=== PATIENT | male | born 1995 | race Caucasian/White ===

== ENCOUNTER 2021-08-27 08:49 | Emergency (ER) | payer MEDICAID, SELFPAY ==
--- NOTE | ~2021-08-27 | CT_ITS ---
EXAMINATION: CT facial bones w con EXAM DATE: 08/27/2021 10:07 INDICATION: dental abscess, facial swelling, r/o deeper inf. TECHNIQUE: Spiral CT of the facial bones was acquired in the axial plane following intravenous inject ion of 75 mL Omnipaque 350. Coronal reformatted images were also reviewed. The dose-length product (DLP) for this examination was 436.63 mGy-cm. The exposure was tailored according to patient size, a nd iterative reconstruction (ASIR) was used as additional dose reduction technique. There is no prio r study for comparison. FINDINGS: There are multiple dental cavities. There is apical lucency surrounding the root of tooth # 4, right upper premolar. Anterior to this, along the right maxilla there is a pocket of fluid measuri ng about 2.3 cm in diameter by 5 mm in maximal thickness, a small odontogenic abscess. There is rathe r extensive right facial swelling. There is mild to moderate right maxillary sinus mucoperiosteal thi ckening. Mildly enlarged lymph node at the right mandibular angle, reactive. There are no displaced a cute nasal bone fractures. The mandible, sinuses and orbits are intact. The orbits, globes and extr aocular muscles are unremarkable. The visualized sinuses and mastoid air cells are well aerated. IMPRESSION: Multiple dental caries, including right upper premolar apical lucency and small abscess a nterior to this, anterior to the right maxillary bone. Reviewed, dictated and finalized at location A. IMPRESSION: Multiple dental caries, including right upper premolar apical lucen cy and small abscess anterior to this, anterior to the right maxillary bone.
--- NOTE | 2021-08-27 08:54 | ED.DENTAL ---
HPI - Dental/Oral General Chief complaint: Dental/Oral <ALIRIO Moody Last Filed: 08/27/21 13:46> Stated complaint: facial swelling, dental abscess <ALIRIO Moody Last Filed: 08/27/21 13:46> Time Seen by Provider: 08/27/21 08:52 <Karlie Hernandez PA-C - Last Filed: 08/27/21 13:46> Source: patient <ALIRIO Moody Last Filed: 08/27/21 13:46> Mode of arrival: ambulatory <ALIRIO Moody Last Filed: 08/27/21 13:46> Limitations: no limitations <ALIRIO Moody Last Filed: 08/27/21 13:46> History of Present Illness HPI Narrative: Patient is a 26 y/o male who presents to the ED with report of dental pain and swelling. Patient reports he has had several issues with his teeth in the past. He developed pain in his right upper molar 3 to 4 days ago. He has since developed swelling in his right upper gums. The swelling has seemed to spread into his right facial cheek and up towards his right eye over the last day, prompting his presentation to the ED today. Patient was prescribed Amoxicillin 500mg and Diclofenac from his Suboxone clinic. He has taken 2 doses of the Amoxicillin so far. He does not have a dentist appointment at this time, but is aware he will need several of his teeth pulled. Patient denies any fevers, chills, nausea, vomiting, vision changes, dysphagia. <Karlie Hernandez PA-C - Last Filed: 08/27/21 13:46> Related Data Allergies/adverse reactions: Allergies Allergy/AdvReac Type Severity Reaction Status Date / Time No Known Allergies Allergy Verified 08/27/21 09:00 <ALIRIO Moody Last Filed: 08/27/21 13:46> Review of Systems Review of Systems: CONSTITUTIONAL: Denies fever, chills. EYES: Denies visual changes. ENT: Reports R upper molar dental pain, swelling along R upper gumline. Denies dysphagia, rhinorrhea, congestion, sore throat. RESPIRATORY: Denies dyspnea. GASTROINTESTINAL: Denies nausea, vomiting. SKIN: Reports swelling in R facial cheek into R eye. Denies rash or itching. MUSCULOSKELETAL: Denies back pain, joint pain, or myalgia. NEUROLOGIC: Denies headache, numbness, or weakness. <Karlie Hernandez PA-C - Last Filed: 08/27/21 13:46> All systems reviewed & are unremarkable except as noted in HPI and below <Karlie Hernandez PA-C - Last Filed: 08/27/21 13:46> PMFSH Past Medical History Medical History: Medical History (Updated 08/27/21 @ 10:31 by Karlie Hernandez PA-C) No pertinent past medical history <Karlie Hernandez PA-C - Last Filed: 08/27/21 13:46> Surgical History Surgical History: Surgical History (Updated 08/27/21 @ 09:17 by Karlie Hernandez PA-C) S/P ORIF (open reduction internal fixation) fracture <Karlie Hernandez PA-C - Last Filed: 08/27/21 13:46> Social History Social History: Social History (Updated 08/27/21 @ 09:17 by Karlie Hernandez PA-C) Smoking status: Current every day smoker Substance use: former Substance use type: opiates Other substance usage details: currently on Suboxone <Karlie Hernandez PA-C - Last Filed: 08/27/21 13:46> Exam Narrative: GENERAL: Well appearing, well-nourished, non-toxic, in no acute distress. HEAD: Normocephalic, atraumatic. EYES: PERRL/EOMI, conjunctivae clear bilaterally. Mild swelling of R lower eyelid. NOSE: Normal, no drainage EARS: TMS clear, with good light reflex. No erythema or bulging. THROAT: Pharynx clear, no exudate. Poor dentition, scattered dental caries. Diffuse swelling and small area of fluctuance to R upper gumline, surrounding teeth #3/4. NECK: Supple. No adenopathy, no masses. RESPIRATORY: Airway patent, respirations nonlabored. Clear to auscultation bilaterally, no rales, rhonchi, wheezing. CARDIOVASCULAR: Regular rate and rhythm without murmurs, rubs, or gallops. Peripheral pulses 2+ and equal bilaterally. MUSCULOSKELETAL: Moves all extremities. Strength/ROM intact without gross deformities or TTP. No edema. No calf tend
[2021-08-27 08:57] VITALS: BP 151/90; PULSE 100; RESP 20; TEMP 36.9; O2SAT 100
[2021-08-27 09:24] LABS: Basophils Absolute Auto 0.1 K/mm3 (0.0-0.1); Basophils Percent Auto 0.6 % (0.2-1.2); Eosinophils Absolute Auto 0.4 K/mm3 (0-0.3); Eosinophils Percent Auto 3.4 % (0-4.4); Hematocrit 47.2 % (42.0-52.0); Hemoglobin 15.5 g/dL (14.0-18.0); Immature Granulocyte Absolute 0.04 K/mm3 (0.00-0.031); Immature Granulocyte Percent A 0.3 % (0-0.5); Lymphocytes Absolute Auto 1.92 K/mm3 (0.9-3.2); Lymphocytes Percent Auto 15.4 % (18.3-44.2); Mean Corpuscular HGB Conc 32.8 g/dl (32-36); Mean Corpuscular Hemoglobin 30.2 pg (26-34); Mean Corpuscular Volume 91.8 fl (80-100); Mean Platelet Volume 11.2 fl (7.4-10.4); Monocytes Percent Auto 8.2 % (2.6-8.5); Neutrophils Percent Auto 72.1 % (45.5-73.1); Platelet Count Result 241 k/mm3 (150-375); Red Blood Count 5.14 M/mm3 (4.6-6.20); Red Cell Distribution Width 13.3 % (11.5-14.5); White Blood Count 12.5 K/mm3 (4.5-10.0)
[2021-08-27 09:42] LABS: Alanine Aminotransferase 20 U/L (4-50); Albumin Level 4.7 g/dL (3.5-5.1); Alkaline Phosphatase 99 U/L (38-126); Anion Gap 9 mmol/L (8-16); Aspartate Amino Transferase 23 U/L (17-59); Bilirubin,Total 0.4 mg/dL (0.2-1.3); Blood Urea Nitrogen 6 mg/dL (9-20); Carbon Dioxide 29 mmol/L (22-30); Chloride 103 mmol/L (98-107); Estimated CRCL calculation 157 ml/min; Estimated Glomerular Filt Rate > 60; Glucose 108 mg/dL (65-110); Potassium 4.4 mmol/L (3.4-5.0); Sodium 141 mmol/L (137-145)
== END 2021-08-27 10:49 | disposition home or self-care (01) ==
PROVIDERS: Physician Assistant; Emergency Provider Emergency Medicine
DX: K04.7 Periapical abscess without sinus (principal); K02.9 Dental caries, unspecified; F17.200 Nicotine dependence, unspecified, uncomplicated
CPT/HCPCS: 36415; 70487; 80053; 85025; 99284; Q9967